=== PATIENT | male | born 1960 | race Caucasian/White ===

== ENCOUNTER 2016-09-20 19:31 | Emergency (ER) | payer OTHER ==
[~2016-09-20] VITALS: Ht 168.9 cm; Wt 67.5 kg
[~2016-09-20 19:31] MED LIST: MOTRIN600 MG PO; NOHOMEMEDS; ULTRAM50 MG PO; VICODIN 5-3001 EACH PO
[2016-09-20] MEDS ORDERED: PREDNISONE50 MG PO (21:17)
[2016-09-20] MEDS ORDERED: VALIUM5 MG PO (21:17)
[2016-09-20] MEDS ORDERED: ULTRAM50 MG PO (21:17)
[2016-09-20 21:53] VITALS: BP 167/99
== END 2016-09-20 22:03 | disposition home or self-care (01) ==
LOC: EME 19:31
DX: M54.31 Sciatica, right side (principal); F17.200 Nicotine dependence, unspecified, uncomplicated
CPT/HCPCS: 73502; 99281; 99284; J1885; J3360; J7512

== ENCOUNTER 2016-10-23 06:06 | Emergency (ER) | payer OTHER ==
[~2016-10-23] VITALS: Ht 167.6 cm; Wt 71.8 kg
[~2016-10-23 06:06] MED LIST changes: +PREDNISONE50 MG PO; +VALIUM5 MG PO
[2016-10-23 12:25] VITALS: BP 111/76
== END 2016-10-23 12:26 | disposition home or self-care (01) ==
LOC: EME → EDBD 06:06 → EME 06:06
PROC: 3E0234Z Introduction of Serum, Toxoid and Vaccine into Muscle, Percutaneous Approach (ICD-10-PCS; principal; 2016-10-23)
DX: S00.81XA Abrasion of other part of head, initial encounter (principal); W18.30XA Fall on same level, unspecified, initial encounter; F10.129 Alcohol abuse with intoxication, unspecified; F17.200 Nicotine dependence, unspecified, uncomplicated; Z23 Encounter for immunization
CPT/HCPCS: 70450; 99281; 99285